=== PATIENT | female | born 1990 | race Caucasian/White ===

== ENCOUNTER 2022-04-11 21:16 | Inpatient (IN) ==
[~2022-04-11 21:16] MED LIST: Azithromycin 500 MG in 0.9 % Sodium Chloride 250 ML IVPB PRN; Famotidine 20 MG/2 ML VIAL IVP ONE; Metoclopramide 10 MG/2 ML VIAL IVP ONE; OXYTOCIN/RINGERS LACTATE 10 UNIT/166.6 ML BAG IVC ONE; Ringers Solution, Lactated 1,000 ML IVC ONE
[2022-04-11] MEDS ORDERED: *HR* Labetalol 20 MG/4 ML SYRINGE IVP PRN (21:22)
[2022-04-11] MEDS ORDERED: *HR* HYDROmorphone PF 0.5 MG/0.5 ML SYRINGE IVP PRN (21:22)
[2022-04-11] MEDS ORDERED: Ondansetron 4 MG/2 ML VIAL IVP PRN (21:22)
[2022-04-11] MEDS ORDERED: Ringers Solution, Lactated 1,000 ML ONE (21:22)
[2022-04-11] MEDS ORDERED: Promethazine 6.25 MG in Water for inj. (sterile) 20 ML IVPB PRN (21:22)
[2022-04-11] MEDS ORDERED: Ringers Solution, Lactated 1,000 ML IVC SCH (21:30)
[2022-04-11] MEDS ORDERED: EPHEDrine 50 MG/ML VIAL ONE (21:44)
[2022-04-11] MEDS ORDERED: *HR* FentaNYL (PF) 100 MCG/2 ML VIAL ONE (21:44)
[2022-04-11] MEDS ORDERED: *HR* Morphine Sulfate/PF 10 MG/10 ML AMPUL ONE (21:44)
[2022-04-11] MEDS ORDERED: Ketorolac 30 MG/ML VIAL ONE (21:45)
[2022-04-11] MEDS ORDERED: Acetaminophen IV 1,000 MG/100 ML BAG IVPB ONE (21:45)
[2022-04-11 22:12] LABS: Basophils % 0.2 %; Eosinophils # 0.1 K/mcL (0.0-0.6); Eosinophils % 0.3 %; Hematocrit 35.1 % (35.3-44.9); Hemoglobin 11.9 g/dL (11.5-15.4); Immature Granulocytes % 0.4 % (0-4); Lymphocytes # 2.3 K/mcL (0.6-4.6); Lymphocytes % 14.8 %; Mean Corpuscular HGB Conc 33.9 g/dL (31.6-35.5); Mean Corpuscular Hemoglobin 30.1 pg (28.0-33.3); Mean Corpuscular Volume 88.6 fL (83.0-100.0); Mean Platelet Volume 10.4 fL (9.4-12.4); Monocytes # 0.8 K/mcL (0.0-1.3); Neutrophils # 12.4 K/mcL (1.6-8.9); Platelet Count 308 K/mcL (140-400); Red Blood Count 3.96 M/mcL (3.82-4.97); Red Cell Distribution Width 13.6 % (11.5-14.5); Segmented Neutrophils % 79.3 %; White Blood Count 15.7 K/mcL (4.3-11.1)
[2022-04-11 22:24] LABS: Amphetamine Screen,Urine Negative ng/mL (Cutoff=1000); Barbiturate Screen,Urine Negative ng/mL (Cutoff=200); Benzodiazepines Screen,Urine Negative ng/mL (Cutoff=200); Cannabinoid Screen,Urine Negative ng/mL (Cutoff = 50); Cocaine Screen,Urine Negative ng/mL (Cutoff= 300); Opiate Screen,Urine Negative ng/mL (Cutoff=300); Phencyclidine Screen,Urine Negative ng/mL (Cutoff=25)
[2022-04-12] MEDS ORDERED: Ondansetron 4 MG/2 ML VIAL IVP PRN (02:23)
[2022-04-12] MEDS ORDERED: Oxytocin 30 UNIT/503 ML BAG IVC SCH (02:23)
[2022-04-12] MEDS ORDERED: Simethicone 80 MG TAB.CHEW PO PRN (02:23)
[2022-04-12] MEDS ORDERED: *HR* OxyCODONE Immed Rel 5 MG TABLET PO PRN (02:23)
[2022-04-12 06:04] LABS: Basophils % 0.2 %; Hematocrit 31.8 % (35.3-44.9); Hemoglobin 10.6 g/dL (11.5-15.4); Immature Granulocytes % 0.5 % (0-4); Lymphocytes # 1.6 K/mcL (0.6-4.6); Lymphocytes % 9.1 %; Mean Corpuscular HGB Conc 33.3 g/dL (31.6-35.5); Mean Corpuscular Hemoglobin 29.8 pg (28.0-33.3); Mean Corpuscular Volume 89.3 fL (83.0-100.0); Mean Platelet Volume 10.5 fL (9.4-12.4); Monocytes # 0.8 K/mcL (0.0-1.3); Monocytes % 4.5 %; Neutrophils # 15.1 K/mcL (1.6-8.9); Platelet Count 287 K/mcL (140-400); Red Blood Count 3.56 M/mcL (3.82-4.97); Red Cell Distribution Width 13.5 % (11.5-14.5); Segmented Neutrophils % 85.7 %; White Blood Count 17.7 K/mcL (4.3-11.1)
[2022-04-12] MEDS: Acetaminophen 325 MG TABLET PO SCH ×3 (07:10→21:46)
[2022-04-12] MEDS: Ibuprofen 600 MG TABLET PO SCH ×3 (07:10→19:45)
[2022-04-12] MEDS: Prenatal Vit/FA 1 EACH TABLET PO SCH (09:38)
[2022-04-12] MEDS: metroNIDAZOLE 500 MG TABLET PO SCH ×2 (09:38→19:40)
[2022-04-12] MEDS: cephALEXin 500 MG CAPSULE PO SCH ×2 (09:38→19:40)
[2022-04-12] MEDS ORDERED: *HR* Enoxaparin 80 MG/0.8 ML SYRINGE SQ SCH (12:00)
[2022-04-12] MEDS: *HR* Enoxaparin 80 MG/0.8 ML SYRINGE SQ SCH ×2 (13:22→21:46)
[2022-04-12] MEDS ORDERED: cephALEXin 500 MG CAPSULE PO SCH (21:00)
[2022-04-12] MEDS ORDERED: metroNIDAZOLE 500 MG TABLET PO SCH (21:00)
[2022-04-13] MEDS: Ibuprofen 600 MG TABLET PO SCH ×2 (02:38→08:59)
[2022-04-13 08:05] VITALS: BP 122/73; PULSE 75; TEMP 98; O2SAT 98
[2022-04-13] MEDS: *HR* Enoxaparin 80 MG/0.8 ML SYRINGE SQ SCH (08:58)
[2022-04-13] MEDS: Acetaminophen 325 MG TABLET PO SCH (08:59)
[2022-04-13] MEDS: Prenatal Vit/FA 1 EACH TABLET PO SCH (08:59)
== END 2022-04-13 12:00 | disposition home or self-care (01) | DRG 785 ==
LOC: 1NENULAB → 1NENUOBS 04-12 02:37
PROVIDERS: ADMIT Obstetrics & Gynecology; ATTEND Obstetrics & Gynecology